=== PATIENT | male | born 1975 | race African-American/Black ===

== ENCOUNTER 2016-07-09 14:59 | Emergency (ER) | payer OTHER ==
[~2016-07-09] VITALS: Ht 195.6 cm; Wt 90.7 kg
[2016-07-09 15:02] VITALS: BP 165/89
== END 2016-07-09 16:05 | disposition home or self-care (01) ==
LOC: ER 15:01
DX: S61.250A Open bite of right index finger without damage to nail, initial encounter (principal); I10 Essential (primary) hypertension; F17.210 Nicotine dependence, cigarettes, uncomplicated; Z88.6 Allergy status to analgesic agent; W54.0XXA Bitten by dog, initial encounter; Y93.89 Activity, other specified; Y92.89 Other specified places as the place of occurrence of the external cause; Y99.8 Other external cause status
CPT/HCPCS: A4606; Z7610

== ENCOUNTER 2021-12-07 11:16 | Emergency (ER) | payer OTHER ==
[~2021-12-07] VITALS: Ht 195.6 cm; Wt 79.4 kg
--- NOTE | 2021-12-07 11:30 | NUR ---
Patient came in to the er "i just want my sugar check". On room air, breathing evenly and unlabored. Kept comfortable, will continue to monitor accordingly.
--- NOTE | 2021-12-07 11:31 | NUR ---
TO ER 12 FOR MD SOUSA
[2021-12-07] MEDS ORDERED: IV NS 0.9% 1,000 ML IV ONE (12:00)
[2021-12-07] MEDS ORDERED: KETOROLAC TROMETHAMINE INJ 30 MG/ML VIAL IV ONE (12:00)
[2021-12-07] MEDS ORDERED: KETOROLAC TROMETHAMINE 15 MG/ML VIAL ONE (12:03)
[2021-12-07 13:13] VITALS: BP 122/88
--- NOTE | 2021-12-07 13:14 | NUR ---
Patient discharged to home in stable condition. Written and verbal after care instructions given. Patient verbalizes understanding of instruction.
== END 2021-12-07 13:14 | disposition home or self-care (01) ==
LOC: ER 11:20
DX: G62.9 Polyneuropathy, unspecified (principal); R25.2 Cramp and spasm; I10 Essential (primary) hypertension; F17.200 Nicotine dependence, unspecified, uncomplicated; Z88.8 Allergy status to other drugs, medicaments and biological substances
CPT/HCPCS: J1885; J7030